=== PATIENT | female | born 1945 | race Caucasian/White ===

== ENCOUNTER → 2017-07-08 | Outpatient (CLI) | payer MEDICARE, BC ==
[2016-06-10 10:13] VITALS: BMI 31.2
[~2017-07-08] MED LIST: ACE325 PO; ACET-1966 PO; ACET-2043 PO; AMLO-96 PO; AMOX1TAB9 PO; CEFU250 PO; CHOL500045 PO; CIPR-245 PO; FAMO20TA28 PO; GLUC100026 PO; HYDR1CAP15 PO; IBU600 PO; IBUP-2708 PO; IBUP600T22 PO; LEVO150T72 PO; LOSA100T67 PO; MOM PO; OXYC5TAB38 PO; PHEN-530 PO; POLY17PO21 PO; SIM40 PO; SIMV-54 PO; TRA50 PO; TRI50 FT; VITA-200 PO; thyroid
== END ==
LOC: LAB 10:58
PROVIDERS: ATTEND Urology
DX: R39.0 Extravasation of urine (principal); B96.20 Unspecified Escherichia coli [E. coli] as the cause of diseases classified elsewhere
CPT/HCPCS: 81001; 87077; 87088; 87186

== ENCOUNTER → 2017-07-12 | Outpatient (CLI) | payer MEDICARE, BC ==
[2016-06-10 10:13] VITALS: BMI 31.2
--- NOTE | 2017-07-12 09:03 | RADIOLOGY IMAGING REPORT ---
FACILITY: [facility] PATIENT NAME: Rowan Rodríguez : 1945 MR: [id number] V: [id number] EXAM DATE: ORDERING PHYSICIAN: SARAH LAMBERT TECHNOLOGIST: Location: [facility] Patient: Rowan Rodríguez : 1945 Visit/Account:[id number] Date of Sevice: 07/12/2017 KIDNEYS EXAMINATION: Renal ultrasound. History: Recurrent UTI COMPARISON STUDIES: CT abdomen and pelvis August 11, 2016 FINDINGS: Kidneys: Right kidney- 10.7 x 4.6 x 5.7 cm Left kidney- 10.3 x 5.2 x 5.2 cm Uniform and symmetric blood flow in each kidney by Doppler ultrasound. Hydronephrosis: Mild left hydronephrosis versus parapelvic cysts Bladder: Prevoid volume 227 mL. Post void residual zero. Bilateral ureteral jets are present. Abdominal aorta and IVC: Aorta and IVC are patent by Doppler ultrasound. IMPRESSION: There is mild left hydronephrosis versus parapelvic cysts Post void bladder residual zero Report Dictated By: Krissy Anton MD at 07/12/2017 8:18 AM Report E-Signed By: Krissy Anton MD at 07/12/2017 8:59 AM WSN:[email or web address]
== END ==
LOC: US 02:14
PROVIDERS: ATTEND Urology
DX: N13.30 Unspecified hydronephrosis (principal)
CPT/HCPCS: 36415; 76705; 82565

== ENCOUNTER → 2017-11-21 | Outpatient (CLI) | payer MEDICARE, BC ==
[2016-06-10 10:13] VITALS: BMI 31.2
[~2017-11-21] MED LIST changes: +GLUC1TAB35 PO
[2017-11-21 12:26] LABS: PLATELET COUNT, AUTOMATED 375 K/uL (150-450)
== END ==
LOC: LAB 11:47
PROVIDERS: ATTEND Family Medicine
DX: E03.9 Hypothyroidism, unspecified (principal); I10 Essential (primary) hypertension; E78.5 Hyperlipidemia, unspecified
CPT/HCPCS: 36415; 82040; 82247; 82310; 82374; 82435; 82465; 82565; 82947; 83718; 84075; 84132; 84155; 84295; 84443; 84450; 84460; 84478; 84520; 85025

== ENCOUNTER → 2018-01-17 | Outpatient (CLI) | payer MEDICARE, BC ==
[2016-06-10 10:13] VITALS: BMI 31.2
[~2018-01-17] MED LIST changes: +LEV125 PO
== END ==
LOC: LAB 09:29
PROVIDERS: ATTEND Urology
DX: N39.0 Urinary tract infection, site not specified (principal); B96.89 Other specified bacterial agents as the cause of diseases classified elsewhere
CPT/HCPCS: 81001; 87088

== ENCOUNTER → 2018-03-14 | Outpatient (CLI) | payer MEDICARE, BC ==
[2016-06-10 10:13] VITALS: BMI 31.2
[~2018-03-14] MED LIST changes: +AMLO-111 PO; -AMLO-96 PO; +ASPI-1471 PO; +LEVO150T78 PO; -LOSA100T67 PO; +LOSA100T69 PO; +PNEU0.5D3 IM
== END ==
LOC: LAB 16:00
PROVIDERS: ATTEND Family Medicine
DX: E03.9 Hypothyroidism, unspecified (principal)
CPT/HCPCS: 36415; 84443

== ENCOUNTER → 2018-04-25 | Outpatient (CLI) | payer MEDICARE, BC ==
[2016-06-10 10:13] VITALS: BMI 31.2
[~2018-04-25] MED LIST changes: +POLY17PO11 PO; -POLY17PO21 PO
--- NOTE | 2018-04-25 09:05 | RADIOLOGY IMAGING REPORT ---
FACILITY: [facility] PATIENT NAME: Rowan Rodríguez : 1945 MR: [id number] V: [id number] EXAM DATE: ORDERING PHYSICIAN: AV KNOX TECHNOLOGIST: Location: [facility] Patient: Rowan Rodríguez : 1945 Visit/Account:[id number] Date of Sevice: 04/25/2018 BONE MINERAL DENSITY DEXA Scan Clinical history: Osteoporosis screening Comparison: None. LUMBAR SPINE: The bone mineral density (BMD) measured from L1-L4 correlates with a Z-score of 0.1 and a T-score of -1.2 which is osteopenia as defined by the World Health Organization. The corresponding risk of frac ture in the lumbar spine is increased between 2-3 times compared with a young adult reference populat ion. HIP: Bone mineral density (BMD) measured in the left total hip region correlates with a Z-score of 0.8 and a T-score of -0.5 which is normal as defined by the World Health Organization. The corresponding ri sk of fracture in the hip is not increased compared with a young adult reference population. Bone mineral density (BMD) measured in the left Femoral Neck region measures 0.870 g/cm?. . T score of -1.2. Osteopenia. Fracture risk increased between 2-3 times Impression: 1. Lumbar spine: Osteopenia. 2. Left Total Hip: Osteopenia. 3. Left Femoral Neck: Bone Mineral Density is 0.870 g/cm?. Osteopenia The next DEXA scan of this patient should include the following sites: L1-L4 and left hip. FRAX? WHO Fracture Risk Assessment Tool link: <http://www.shef.ac.uk/FRAX/tool.jsp?[email or web address]> PLEASE NOTE: 1) The World Health Organization defines low BMD as follows: T-score Normal > -1 Osteopenia < -1 and > -2.5 Osteoporosis < -2.5 without fractures Established osteoporosis < -2.5 with fractures 2) In general, you may wish to consider: Diagnosis Treatment Follow-up DEXA Normal BMD Prevention 2-3 years Osteopenia Prevention/therapy 1-2 years Osteoporosis Therapy Yearly 3) Fracture risk estimated from the T-score is more accurate for vertebral fractures (often spontane ous) than for hip fractures. Report Dictated By: Jim Yusuf MD at 04/25/2018 8:32 AM Report E-Signed By: Jim Yusuf MD at 04/25/2018 9:01 AM ISRRAEL:RENAY
--- NOTE | 2018-04-25 12:21 | RADIOLOGY IMAGING REPORT ---
FACILITY: [facility] [place] PATIENT NAME: KIAH LITTLE : [id number] MR: [id number] V: [id number] EXAM DATE: [id number] ORDERING PHYSICIAN: AV KNOX TECHNOLOGIST: Jordyn Leyva PROCEDURE:BILATERAL DIGITAL SCREENING MAMMOGRAM WITH CAD ASSISTED INTERPRETATION & 3D TOMOSYNTHESIS COMPARISON:Prior mammograms 10/03/2013 & 07/08/2015. INDICATIONS:SCREENING FINDINGS: The breast tissue demonstrates scattered fibroglandular densities. There are stable nodular asymmetries in both breasts. There is no dominant mass, suspicious cluster of microcalcifications or persistent areas of architectural distortion. DIAGNOSTIC CATEGORY 1--NEGATIVE. RECOMMENDATIONS: ROUTINE MAMMOGRAM AND CLINICAL EVALUATION IN 1 YR. IMPRESSION: BIRADS 1: Negative. Dictated by: Elijah Stauffer M.D. on 04/25/2018 at 9:38 Transcribed by: GABBIE on 04/25/2018 at 9:58 Approved by: Elijah Stauffer M.D. on 04/25/2018 at 12:20 [facility]
== END ==
LOC: MAMO 01:10
PROVIDERS: ATTEND Family Medicine
DX: Z13.820 Encounter for screening for osteoporosis (principal); Z12.31 Encounter for screening mammogram for malignant neoplasm of breast; M85.88 Other specified disorders of bone density and structure, other site
CPT/HCPCS: 77063; 77067; 77080

== ENCOUNTER → 2018-06-21 | Outpatient (CLI) | payer MEDICARE, BC ==
[2016-06-10 10:13] VITALS: BMI 31.2
[~2018-06-21] MED LIST changes: +FLUT16SP19 NS; -LOSA100T69 PO; +LOSA100T75 PO; +ROBC PO
--- NOTE | 2018-06-21 12:12 | RADIOLOGY IMAGING REPORT ---
FACILITY: [facility] [place] [place] PATIENT NAME: Rowan Rodríguez : 1945 MR: [id number] V: [id number] EXAM DATE: ORDERING PHYSICIAN: SARAH LAMBERT TECHNOLOGIST: [place] [facility] [place] Rowan Rodríguez : 1945 Visit/Account:[id number] Date of Sevice: 06/21/2018 KIDNEYS EXAMINATION: Renal ultrasound. History: UTIs, incomplete bladder emptying COMPARISON STUDIES: July 12, 2017 FINDINGS: Kidneys: Right kidney- 9.8 x 4.6 x 4.4 cm Left kidney- 9.8 x 5.9 x 4.5 cm Uniform and symmetric blood flow in each kidney by Doppler ultrasound. Hydronephrosis: There is mild right hydronephrosis and mild to moderate left hydronephrosis. This fi nding remained following patient voiding Resistive index on the right 0.59 on the left 0.76 Bladder: Prevoid volume 208 mL. Post void residual 1.3 mL. Bilateral ureteral jets are present Abdominal aorta and IVC: Aorta and IVC are patent by Doppler ultrasound. IMPRESSION: Mild right and mild to moderate left hydronephrosis that persists following bladder emptying Report Dictated By: Krissy Anton MD at 06/21/2018 12:05 PM Report E-Signed By: Krissy Anton MD at 06/21/2018 12:08 PM WSN:[email or web address]
== END ==
LOC: US 01:21
PROVIDERS: ATTEND Urology
DX: N31.2 Flaccid neuropathic bladder, not elsewhere classified (principal); N39.0 Urinary tract infection, site not specified; R33.8 Other retention of urine; N13.2 Hydronephrosis with renal and ureteral calculous obstruction
CPT/HCPCS: 36415; 76705; 82565

== ENCOUNTER 2018-11-07 12:04 | Emergency (ER) | payer MEDICARE, BC ==
[2016-06-10 10:13] VITALS: Wt 77.6 kg
[~2018-11-07 12:04] MED LIST changes: -AMLO-111 PO; +AMLO-125 PO; +CALC-28 PO
[2018-11-07] MEDS ORDERED: CEPH500T7 PO (12:16)
[2018-11-07] MEDS ORDERED: GUAI-242 PO (12:16)
[2018-11-07] MEDS ORDERED: ONDA-2 PO (12:16)
--- NOTE | 2018-11-07 12:21 | ER Report ---
History and Physical Time Seen By MD: 12:21 Hx. of Stated Complaint: PT BEING TREATED FOR UTI SINCE LAST TUESDAY, BEING TREATED WITH MACROBID AND KEFLEX, PT REPORTS NOT GETTING BETTER, REPORTS DR. RIOS TOLD HER TO COME TO ED. PT REPORTS LOW ABD PAIN, COUGH, FEVERS, HEADACHES. HPI/ROS CHIEF COMPLAINT: Cough, fever, suprapubic abdominal pain HISTORY OF PRESENT ILLNESS: This is a 73-year-old female. She has been treated recently for urinary tract infection by her urologist, Dr. Urban, who started her on Macrobid and Keflex. She is still having suprapubic abdominal pain. She does self catheter treatments because she has problems with sensation and is not aware and able to urinate on her own. She also is having cough, fevers and headaches now as well. She talked to her urologist who said to come to the ER today. On arrival was found to have hypoxia, normally does not have any shortness of breath or need oxygen. No history of respiratory problems chronically. Denies any changes with her bowels recently. Cough started becoming productive with the initial sputum today. No nausea or vomiting. Central chest h urts with coughing. Allergies: Coded Allergies: Sulfa (Sulfonamide Antibiotics) (Verified Allergy, Severe, ANAPHYLAXIS, 11/07/18) latex (Verified Allergy, Intermediate, 11/07/18) Home Meds Active Scripts Guaifenesin/Codeine (GUAIFENESIN-CODEINE SYRUP) 5 Ml Syrp, 5 ML PO Q6H PRN for COUGH, #120 ML 0 Refills Prov:SANTOS SALEH MD 11/07/18 Benzonatate 100 Mg Cap (TESSALON PERLE 100 MG CAP) 100 Mg Capsule, 100 MG PO TID PRN for COUGH, #18 CAP 0 Refills Prov:SANTOS SALEH MD 11/07/18 Amoxicillin/Pot Clav 875-125 Mg Tab (AUGMENTIN 875-125 TABLET) 1 Each Tablet, 1 TAB PO Q12H for 10 Days, #20 TAB 0 Refills Prov:SANTOS SALEH MD 11/07/18 Azithromycin (ZITHROMAX) 250 Mg Tablet, 1 TAB PO QDAY for 4 Days, #4 TAB 0 Refills Prov:SANTOS SALEH MD 11/07/18 Reported Medications Guaifenesin/Codeine Phosphate (CHERATUSSIN AC SYRUP) 118 Ml Liquid, 5-10 ML PO QID PRN for COUGH 11/07/18 Cephalexin 500 Mg Tab (KEFLEX 500 MG TAB) 500 Mg Tablet, 500 MG PO Q6H, #28 TAB 11/07/18 Ondansetron Hcl (ONDANSETRON HCL) 4 Mg Tablet, 4 MG PO Q6H PRN for NAUSEA, TAB 11/07/18 Calcium Phosphate Trib/Vit D3 (Citracal + D3 Gummies) 1 Each Tab.chew, 1 TAB.CHEW PO BID 09/21/18 Aspirin (ASPIR 81) 81 Mg Tablet.dr, 1 TAB PO QDAY 03/14/18 Amlodipine Besylate (AMLODIPINE BESYLATE) 5 Mg Tablet, 1 TAB PO QDAY, TAB 03/14/18 Levothyroxine Sodium (LEVOTHYROXINE SODIUM) 150 Mcg Tablet, 1 TAB PO QDAY 03/14/18 Glucosamine/Msm/Chondroitin A (GLUCOSAMINE CHONDROIT MSM TAB) 1 Each Tablet, 2 TAB PO DAILY 11/21/17 Simvastatin (SIMVASTATIN) 40 Mg Tablet, 1 TAB PO DAILY 12/21/16 Losartan Potassium (LOSARTAN POTASSIUM) 100 Mg Tablet, 1 TAB PO QDAY 12/21/16 Reviewed Nurses Notes: Yes Hx Smoking: No Smoking Status: Never Smoker Hx Substance Use Disorder: No Hx Alcohol Use: No Constitutional Vital Sign - Last 24 Hours 11/07/18 11/07/18 11/07/18 11/07/18 12:09 12:15 12:25 12:30 Temp 98.3 Pulse 74 75 69 Resp 12 13 9 B/P (MAP) 153/65 149/74 (99) 136/67 (90) Pulse Ox 86 87 92 O2 Delivery Room Air O2 Flow Rate 1.0 11/07/18 11/07/18 11/07/18 11/07/18 12:45 13:00 13:15 13:30 Pulse 77 78 67 63 Resp 12 38 12 10 B/P (MAP) 147/56 (86) 118/112 (114) 107/50 (69) 121/58 (79) Pulse Ox 92 90 91 91 11/07/18 11/07/18 11/07/18 11/07/18 13:45 14:00 14:30 14:45 Pulse 63 63 65 61 Resp 11 12 17 15 B/P (MAP) 120/47 (71) 130/56 (80) 139/66 (90) 133/62 (85) Pulse Ox 91 91 86 90 11/07/18 11/07/18 11/07/18 11/07/18 15:00 15:15 15:30 15:45 Pulse 58 59 58 58 Resp 22 19 25 20 B/P (MAP) 126/65 (85) 123/64 (83) Pulse Ox 85 89 89 88 11/07/18 11/07/18 11/07/18 11/07/18 16:00 16:15 16:16 16:17 Pulse 68 76 77 Resp 9 B/P (MAP) 137/63 (87) 140/55 (83) Pulse Ox 90 83 81 O2 Delivery Room Air Physical Exam General Appearance: The patient is alert. No acute distress, but is ill- appearing and uncomfortable Eyes: Pupils are equal, round. Reactive to light. No pallor, injection or icterus. Extraocular movements are intact. ENT: Mucous membranes are moist. Normal oral mucosa. Posterior oropharynx is normal. Neck: Supple and non tender. Respiratory: Lungs are diminished with fine rales in both bases a little worse on the left side. No rhonchi or wheezing noted. No retractions or accessory muscle use. She does have significant coughing bouts during our interview and exam. Cardiovascular: Regular rate and rhythm. No murmurs, gallops or rubs. Normal capillary refill. No edema. Gastrointestinal: Abdomen is soft with suprapubic tenderness. Nondistended. Normal active bowel sounds. No costovertebral angle tenderness with percussion. Neurological: Alert and oriented x3. No focal neurologic deficits Skin: Warm and dry. Musculoskeletal: Extremities are nontender. No tenderness palpating her back and spine. DIFFERENTIAL DIAGNOSIS: After history and physical exam, differential diagnosis was considered for a patient with cough and hypoxia with fevers as well as suprapubic tenderness and urinary tract infections with self catheter. Need to look at the abdomen for various causes of this pain as well as looking for infectious etiologies or blood clots looking at the hypoxia and cough. Medical Decision Making Data Points Result Diagram: 11/07/18 1217 11/07/18 1217 Laboratory Hematology Test 11/07/18 12:17 11/07/18 12:48 11/07/18 13:55 Red Blood Count 5.18 M/uL (4.17-5.56) Mean Corpuscular Volume 91.9 fL (80.0-96.0) Mean Corpuscular Hemoglobin 30.4 pg (26.0-33.0) Mean Corpuscular Hemoglobin Concent 33.1 g/dL (32.0-36.0) Red Cell Distribution Width 13.5 % (11.5-14.5) Mean Platelet Volume 8.4 fL (7.2-11.1) Neutrophils (%) (Auto) 64.9 % (39.4-72.5) Lymphocytes (%) (Auto) 20.2 % (17.6-49.6) Monocytes (%) (Auto) 12.5 % (4.1-12.4) Eosinophils (%) (Auto) 1.2 % (0.4-6.7) Basophils (%) (Auto) 1.2 % (0.3-1.4) Nucleated RBC Relative Count (auto) 0.0 /100WBC Neutrophils # (Auto) 3.2 K/uL (2.0-7.4) Lymphocytes # (Auto) 1.0 K/uL (1.3-3.6) Monocytes # (Auto) 0.6 K/uL (0.3-1.0) Eosinophils # (Auto) 0.1 K/uL (0.0-0.5) Basophils # (Auto) 0.1 K/uL (0.0-0.1) Nucleated RBC Absolute Count (auto) 0.00 K/uL Sodium Level 140 mmol/L (137-145) Potassium Level 4.3 mmol/L (3.5-5.0) Chloride Level 103 mmol/L (98-107) Carbon Dioxide Level 31 mmol/L (22-31) Blood Urea Nitrogen 12 mg/dl (7-18) Creatinine 1.10 mg/dl (0.52-1.04) Glomerular Filtration Rate Calc 48.8 Random Glucose 109 mg/dl (75-110) Lactate 1.1 mmol/L (0.7-2.1) Calcium Level 9.3 mg/dl (8.4-10.2) Total Bilirubin 0.7 mg/dl (0.2-1.3) Aspartate Amino Transf (AST/SGOT) 21 U/L (0-35) Alanine Aminotransferase (ALT/SGPT) 33 U/L (0-56) Alkaline Phosphatase 69 U/L (0-126) Total Protein 7.1 g/dl (6.3-8.2) Albumin 4.0 g/dl (3.5-5.0) Urine Color Yellow Urine Clarity Clear Urine pH 5.0 pH (4.8-9.5) Urine Specific [place] 1.017 Urine Protein Negative mg/dL (NEGATIVE) Urine Glucose (UA) Negative mg/dL (NEGATIVE) Urine Ketones Negative mg/dL (NEGATIVE) Urine Blood Small (NEGATIVE) Urine Nitrite Negative (NEGATIVE) Urine Bilirubin Negative (NEGATIVE) Urine Urobilinogen Negative mg/dL (0.2-1.9) Urine Leukocyte Esterase Negative (NEGATIVE) Urine RBC 1 /HPF (0-2/HPF) Urine WBC <1 /HPF (0-5/HPF) Urine Squamous Epithelial Cells Many /LPF (NONE-FEW) Urine Bacteria Negative /HPF (NONE-FEW) Urine Mucus None /HPF (NONE-FEW) Influenza Virus Type A (PCR) Negative (NEGATIVE) Influenza Virus Type B (PCR) Negative (NEGATIVE) Chemistry Test 11/07/18 12:17 11/07/18 12:48 11/07/18 13:55 White Blood Count 4.9 k/uL (4.5-11.0) Red Blood Count 5.18 M/uL (4.17-5.56) Hemoglobin 15.7 g/dL (12.0-16.0) Hematocrit 47.6 % (34.0-47.0) Mean Corpuscular Volume 91.9 fL (80.0-96.0) Mean Corpuscular Hemoglobin 30.4 pg (26.0-33.0) Mean Corpuscular Hemoglobin Concent 33.1 g/dL (32.0-36.0) Red Cell Distribution Width 13.5 % (11.5-14.5) Platelet Count 331 K/uL (150-450) Mean Platelet Volume 8.4 fL (7.2-11.1) Neutrophils (%) (Auto) 64.9 % (39.4-72.5) Lymphocytes (%) (Auto) 20.2 % (17.6-49.6) Monocytes (%) (Auto) 12.5 % (4.1-12.4) Eosinophils (%) (Auto) 1.2 % (0.4-6.7) Basophils (%) (Auto) 1.2 % (0.3-1.4) Nucleated RBC Relative Count (auto) 0.0 /100WBC Neutrophils # (Auto) 3.2 K/uL (2.0-7.4) Lymphocytes # (Auto) 1.0 K/uL (1.3-3.6) Monocytes # (Auto) 0.6 K/uL (0.3-1.0) Eosinophils # (Auto) 0.1 K/uL (0.0-0.5) Basophils # (Auto) 0.1 K/uL (0.0-0.1) Nucleated RBC Absolute Count (auto) 0.00 K/uL Glomerular Filtration Rate Calc 48.8 Lactate 1.1 mmol/L (0.7-2.1) Calcium Level 9.3 mg/dl (8.4-10.2) Total Bilirubin 0.7 mg/dl (0.2-1.3) Aspartate Amino Transf (AST/SGOT) 21 U/L (0-35) Alanine Aminotransferase (ALT/SGPT) 33 U/L (0-56) Alkaline Phosphatase 69 U/L (0-126) Total Protein 7.1 g/dl (6.3-8.2) Albumin 4.0 g/dl (3.5-5.0) Urine Color Yellow Urine Clarity Clear Urine pH 5.0 pH (4.8-9.5) Urine Specific [place] 1.017 Urine Protein Negative mg/dL (NEGATIVE) Urine Glucose (UA) Negative mg/dL (NEGATIVE) Urine Ketones Negative mg/dL (NEGATIVE) Urine Blood Small (NEGATIVE) Urine Nitrite Negative (NEGATIVE) Urine Bilirubin Negative (NEGATIVE) Urine Urobilinogen Negative mg/dL (0.2-1.9) Urine Leukocyte Esterase Negative (NEGATIVE) Urine RBC 1 /HPF (0-2/HPF) Urine WBC <1 /HPF (0-5/HPF) Urine Squamous Epithelial Cells Many /LPF (NONE-FEW) Urine Bacteria Negative /HPF (NONE-FEW) Urine Mucus None /HPF (NONE-FEW) Influenza Virus Type A (PCR) Negative (NEGATIVE) Influenza Virus Type B (PCR) Negative (NEGATIVE) Urinalysis Test 11/07/18 12:48 Urine Color Yellow Urine Clarity Clear Urine pH 5.0 pH (4.8-9.5) Urine Specific [place] 1.017 Urine Protein Negative mg/dL (NEGATIVE) Urine Glucose (UA) Negative mg/dL (NEGATIVE) Urine Ketones Negative mg/dL (NEGATIVE) Urine Blood Small (NEGATIVE) Urine Nitrite Negative (NEGATIVE) Urine Bilirubin Negative (NEGATIVE) Urine Urobilinogen Negative mg/dL (0.2-1.9) Urine Leukocyte Esterase Negative (NEGATIVE) Urine RBC 1 /HPF (0-2/HPF) Urine WBC <1 /HPF (0-5/HPF) Urine Squamous Epithelial Cells Many /LPF (NONE-FEW) Urine Bacteria Negative /HPF (NONE-FEW) Urine Mucus None /HPF (NONE-FEW) EKG/Imaging Imaging CHEST PA LAT HISTORY: Cough. Fever. COMPARISON: None FINDINGS: Cardiomediastinal contours: The heart size is normal. Lungs and pleura: There is no finding of an infiltrate, lymphadenopathy or pleural effusion. Bones/soft tissues: There are no findings of a fracture. Abdomen: There are surgical clips in the left and right upper quadrant. IMPRESSION: 1. No active disease in the chest. 2. Postoperative changes in the abdomen. Report Dictated By: Meng Garcia MD at 11/07/2018 1:[address] CTA CHEST W & W/O CON HISTORY: Cough hypoxia and fever ADDITIONAL HISTORY: None. TECHNIQUE: CTA chest with intravenous contrast. Axial imaging acquired following administration of IV contrast timed for maximum opacification of the pulmonary arterial vasculature. Slab 3-D MIP reconstructed images were also created for further evaluation and interpretation. Reconstruction of the source data set includes multiplanar 2-D in the sagittal and coronal planes and 3-D reconstructed coronal slab MIP series. 3-D images were created by the technologist.Dose Lowering Technique One of the following dose optimization techniques was utilized in the performance of this exam: Automated exposure control; adjustment of the mA and/or kV according to the patient's size; or use of an iterative reconstruction technique. Specific details can be referenced in the facility's radiology CT exam operational policy. CONTRAST: 75 mL Isovue-370 COMPARISON: None. FINDINGS: Lungs/pleura: There is a cluster of nodules in the right middle lobe ranging in size up to 5 mm. A similar finding although too lesser extent is seen along the inferior aspect of the lingula. This may represent an acute infectious/inflammatory process. There is mild peribronchial thickening in the lower lobes. No evidence of pleural effusions. Heart/vessels: Negative. There are no filling defects seen in the pulmonary arteries worrisome for a pulmonary embolus. Mediastinum/lymph nodes: There is a 2.4 x 0.9 cm prevascular space lymph node There is a 1.8 x 1 cm AP window lymph node is a 1.4 x 1 cm pretracheal lymph node is 2.5 x 1.26 cm subcarinal lymph node Visualized upper abdomen: There numerous surgical clips in the upper abdomen adjacent to the stomach. There are postsurgical changes from a cholecystectomy Bones/soft tissues: Negative. Additional findings: None IMPRESSION: No evidence of pulmonary emboli There is a cluster of nodules in the right middle lobe ranging in size up to 5 mm. A similar finding seen in the inferior lingula but to a lesser extent. This may represent an infectious/inflammatory process given the clinical history. Also noted is mild mediastinal adenopathy which could be reactive. Short-term interval follow-up recommended Report Dictated By: Krissy Anton MD at 11/07/2018 2:[address] ABDOMEN PELVIS W/ CON HISTORY: fever, suprapubic abd pain TECHNIQUE: Following administration of IV contrast contiguous axial images acquired through the abdomen/pelvis. Coronal and sagittal reformatting also performed.Dose Lowering Technique One of the following dose optimization techniques was utilized in the performance of this exam: Automated exposure control; adjustment of the mA and/or kV according to the patient's size; or use of an iterative reconstruction technique. Specific details can be referenced in the facility's radiology CT exam operational policy. CONTRAST: 75 mL Isovue-370 COMPARISON: August 11, 2016 FINDINGS: Visualized lung bases: Nodular infiltrate seen in the right middle lobe and inferior lingula as discussed in today's CTA of the chest Hepatobiliary: Postsurgical changes from a cholecystectomy Spleen: Negative. Adrenals: Negative. Pancreas: Negative. Kidneys ureters or bladder: Numerous parapelvic cysts are identified in both kidneys. There is cortical scarring in the upper pole of the left kidney . This mild bladder wall thickening Genitalia: Hysterectomy GI: There numerous surgical clips adjacent to the stomach. There appears to been a Odalys procedure. There is scattered diverticula throughout the colon although no CT evidence of acute diverticulitis . The appendix is visualized and does not appear inflamed. There is mild focal narrowing in the sigmoid colon most likely an area of spasm less likely an annular lesion Vessels/spaces/nodes: Negative. Bones/soft tissues: There is a small umbilical hernia containing fat Additional findings: None pertinent. IMPRESSION: There is scattered diverticula throughout the colon although no CT evidence of acute diverticulitis Cortical scarring upper pole the left kidney Numerous parapelvic cysts in both kidneys Mild bladder wall thickening Post surgical changes from cholecystectomy and hysterectomy Nodular infiltrates in the right middle lobe and inferior lingula as discussed in today's CTA of the chest Report Dictated By: Krissy Anton MD at 11/07/2018 2:46 PM ED Course/Re-evaluation Clinical Indication for ER IV: Hydration, IV Access ED Course Labs obtained, unremarkable. Urinalysis does not show signs of infection. Did draw a lactate and blood cultures and sent catheter urine specimen for culture. Initial x-ray negative, but based on symptoms, advance to a CT scan. Did a CT angiogram of the chest which was negative for PE but does show nodular changes in the right middle and left lingular lobe. Abdominal CT scan shows some bladder wall thickening but no other problems there. Discussed briefly with Dr. Rios, and let him know we would be stopping the Macrobid and Keflex and starting a azithromycin and Augmentin. Attempted to call her primary care provider, Dr. Knox, but she was unavailable. Recommended that she follow up with Dr. Heaton later this week to make sure she is improving. Follow-up CT scan will need to be done as well to ensure clearing. Home oxygen provided. Vital signs remained stable and she is stable to return home at this time. Decision to Disposition Date: November 07, 2018 Decision to Disposition Time: 16:14 Depart Departure Latest Vital Signs Vital Signs Date Time Temp Pulse Resp B/P (MAP) Pulse Ox O2 Delivery O2 Flow Rate FiO2 11/07/18 16:17 77 81 Room Air 11/07/18 16:16 140/55 (83) 11/07/18 16:00 9 11/07/18 12:25 1.0 11/07/18 12:09 98.3 Impression: Primary Impression: Pneumonia Condition: Improved Disposition: HOME OR SELF-CARE Referrals: AV KNOX MD (PCP) New Scripts Guaifenesin/Codeine (GUAIFENESIN-CODEINE SYRUP) 5 Ml Syrp 5 ML PO Q6H PRN for COUGH, #120 ML 0 Refills Prov: SANTOS SALEH MD 11/07/18 Benzonatate 100 Mg Cap (TESSALON PERLE 100 MG CAP) 100 Mg Capsule 100 MG PO TID PRN for COUGH, #18 CAP 0 Refills Prov: SANTOS SALEH MD 11/07/18 Amoxicillin/Pot Clav 875-125 Mg Tab (AUGMENTIN 875-125 TABLET) 1 Each Tablet 1 TAB PO Q12H for 10 Days, #20 TAB 0 Refills Prov: SANTOS SALEH MD 11/07/18 Azithromycin (ZITHROMAX) 250 Mg Tablet 1 TAB PO QDAY for 4 Days, #4 TAB 0 Refills Prov: SANTOS SALEH MD 11/07/18 Departure Forms: Home Oxygen, Nebulizer RX Durable Medical Equipment- Oxygen: Oxygen Concentrator, Portable Oxygen Gas Reason for Use/Diagnosis: pneumonia, hypoxia Start Date of the Order: November 07, 2018 Route of Administration (if applicable): Nasal Cannula Frequency of Use: Continuous Duration Home O2 Required: 4 Duration Units: Weeks Room Air Oxygen Saturation: 81 ER Prescribing Physician's Name: Santos Saleh NPI Numbers for Local ER MDs: Padmini [id number] Patient Instructions: Community Acquired Pneumonia (ED) Additional Instructions: You can stop your Macrobid and Keflex. Start the following two antibiotics: Azithromycin 250mg tablets, 2 tablets today, then one daily for 4 more days. Augmentin 875/125 twice a day for 10 days. Please follow-up with Dr. Rios as planned. Call Dr. Knox tomorrow to arrange follow-up with her. You can use Guaifenesin with Codeine, 1 teaspoon every 4 hours as needed for severe cough. You can use Benzonatate 100mg capsules, one every 8 hours as needed for cough. Home oxygen at 2.5 liters by nasal canula continuously until you see Dr. Knox and she okays you to stop the oxygen. Problem Qualifiers Primary Impression: Pneumonia Pneumonia type: due to unspecified organism Laterality: bilateral Lung location: unspecified part of lung Qualified Codes: J18.9 - Pneumonia, unspecified organism SANTOS SALEH MD November 07, 2018 12:21
[2018-11-07] MEDS ORDERED: NS(*) 0.9% 1000 ML BAG 1,000 ML IV ONE (12:30)
[2018-11-07 12:45] LABS: PLATELET COUNT, AUTOMATED 331 K/uL (150-450)
--- NOTE | 2018-11-07 13:12 | RADIOLOGY IMAGING REPORT ---
FACILITY: [facility] PATIENT NAME: Rowan Rodríguez : 1945 MR: [id number] V: [id number] EXAM DATE: ORDERING PHYSICIAN: JUANITA SALEH TECHNOLOGIST: Location: [facility] - [place] Patient: Rowan Rodríguez : 1945 Visit/Account:[id number] Date of Sevice: 11/07/2018 CHEST PA LAT HISTORY: Cough. Fever. COMPARISON: None FINDINGS: Cardiomediastinal contours: The heart size is normal. Lungs and pleura: There is no finding of an infiltrate, lymphadenopathy or pleural effusion. Bones/soft tissues: There are no findings of a fracture. Abdomen: There are surgical clips in the left and right upper quadrant. IMPRESSION: 1. No active disease in the chest. 2. Postoperative changes in the abdomen. Report Dictated By: Meng Garcia MD at 11/07/2018 1:06 PM Report E-Signed By: Meng Garcia MD at 11/07/2018 1:07 PM WSN:[email or web address]
[2018-11-07] MEDS ORDERED: guaiFENesin/CODEINE 5 ML UDBTL PO ONE (13:40)
[2018-11-07] MEDS ORDERED: IOPAMIDOL 76% 100 ML INFUS BTL 100 ML ONE (14:14)
[2018-11-07] MEDS ORDERED: NS(*) 0.9% 50 ML BAG 50 ML ONE (14:14)
--- NOTE | 2018-11-07 14:48 | RADIOLOGY IMAGING REPORT ---
[place] [facility] [place] Rowan Rodríguez : 1945 MR: [id number] V: [id number] EXAM DATE: ORDERING PHYSICIAN: JUANITA SALEH TECHNOLOGIST: Location: [facility] - [place] Patient: Rowan Rodríguez : 1945 Visit/Account:[id number] Date of Sevice: 11/07/2018 CT CTA CHEST W & W/O CON HISTORY: Cough hypoxia and fever ADDITIONAL HISTORY: None. TECHNIQUE: CTA chest with intravenous contrast. Axial imaging acquired following administration of IV contrast timed for maximum opacification of the pulmonary arterial vasculature. Slab 3-D MIP deb nstructed images were also created for further evaluation and interpretation. Reconstruction of the [facility] data set includes multiplanar 2-D in the sagittal and coronal planes and 3-D reconstructed fercho nal slab MIP series. 3-D images were created by the technologist.Dose Lowering Technique One of the following dose optimization techniques was utilized in the performance of this exam: Autom ated exposure control; adjustment of the mA and/or kV according to the patient's size; or use of an i terative reconstruction technique. Specific details can be referenced in the facility's radiology C T exam operational policy. CONTRAST: 75 mL Isovue-370 COMPARISON: None. FINDINGS: Lungs/pleura: There is a cluster of nodules in the right middle lobe ranging in size up to 5 mm. A similar finding although too lesser extent is seen along the inferior aspect of the lingula. This ma y represent an acute infectious/inflammatory process. There is mild peribronchial thickening in the lower lobes. No evidence of pleural effusions. Heart/vessels: Negative. There are no filling defects seen in the pulmonary arteries worrisome for a pulmonary embolus. Mediastinum/lymph nodes: There is a 2.4 x 0.9 cm prevascular space lymph node There is a 1.8 x 1 cm AP window lymph node is a 1.4 x 1 cm pretracheal lymph node is 2.5 x 1.26 cm olivares bcarinal lymph node Visualized upper abdomen: There numerous surgical clips in the upper abdomen adjacent to the stomach . There are postsurgical changes from a cholecystectomy Bones/soft tissues: Negative. Additional findings: None IMPRESSION: No evidence of pulmonary emboli There is a cluster of nodules in the right middle lobe ranging in size up to 5 mm. A similar finding seen in the inferior lingula but to a lesser extent. This may represent an infectious/inflammatory process given the clinical history. Also noted is mild mediastinal adenopathy which could be reactiv e. Short-term interval follow-up recommended Report Dictated By: Krissy Anton MD at 11/07/2018 2:36 PM Report E-Signed By: Krissy Anton MD at 11/07/2018 2:44 PM RODNEYN:[email or web address]
--- NOTE | 2018-11-07 15:40 | RADIOLOGY IMAGING REPORT ---
FACILITY: [facility] PATIENT NAME: Rowan Rodríguez : 1945 MR: [id number] V: [id number] EXAM DATE: ORDERING PHYSICIAN: JUANITA SALEH TECHNOLOGIST: [place] [facility] [place] Patient: Rowan Rodríguez : 1945 Visit/Account:[id number] Date of Sevice: 11/07/2018 CT ABDOMEN PELVIS W/ CON HISTORY: fever, suprapubic abd pain TECHNIQUE: Following administration of IV contrast contiguous axial images acquired through the abdom en/pelvis. Coronal and sagittal reformatting also performed.Dose Lowering Technique One of the following dose optimization techniques was utilized in the performance of this exam: Autom ated exposure control; adjustment of the mA and/or kV according to the patient's size; or use of an i terative reconstruction technique. Specific details can be referenced in the facility's radiology C T exam operational policy. CONTRAST: 75 mL Isovue-370 COMPARISON: August 11, 2016 FINDINGS: Visualized lung bases: Nodular infiltrate seen in the right middle lobe and inferior lingula as disc ussed in today's CTA of the chest Hepatobiliary: Postsurgical changes from a cholecystectomy Spleen: Negative. Adrenals: Negative. Pancreas: Negative. Kidneys ureters or bladder: Numerous parapelvic cysts are identified in both kidneys. There is corti khadijah scarring in the upper pole of the left kidney . This mild bladder wall thickening Genitalia: Hysterectomy GI: There numerous surgical clips adjacent to the stomach. There appears to been a Odalys procedure . There is scattered diverticula throughout the colon although no CT evidence of acute diverticuliti s . The appendix is visualized and does not appear inflamed. There is mild focal narrowing in the s igmoid colon most likely an area of spasm less likely an annular lesion Vessels/spaces/nodes: Negative. Bones/soft tissues: There is a small umbilical hernia containing fat Additional findings: None pertinent. IMPRESSION: There is scattered diverticula throughout the colon although no CT evidence of acute diverticulitis Cortical scarring upper pole the left kidney Numerous parapelvic cysts in both kidneys Mild bladder wall thickening Post surgical changes from cholecystectomy and hysterectomy Nodular infiltrates in the right middle lobe and inferior lingula as discussed in today's CTA of the chest Report Dictated By: Krissy Anton MD at 11/07/2018 2:46 PM Report E-Signed By: Krissy Anton MD at 11/07/2018 3:36 PM RODNEYN:ALEX
[2018-11-07 16:16] VITALS: BP 140/55
[2018-11-07] MEDS ORDERED: AZIT-1 PO (16:18)
[2018-11-07] MEDS ORDERED: AMOX-559 PO (16:18)
[2018-11-07] MEDS ORDERED: BENZ100C4 PO (16:18)
[2018-11-07] MEDS ORDERED: ROBC PO (16:18)
[2018-11-07] MEDS ORDERED: AMOX/CLAV 875 MG TAB PO ONE (16:25)
[2018-11-07] MEDS ORDERED: AZITHROMYCIN 250 MG TAB PO ONE (16:25)
[2018-11-09] MEDS ORDERED: IPRA3AMP10 IH ×2 (11:13→11:44)
== END 2018-11-07 16:40 | disposition home or self-care (01) ==
LOC: ER 12:15
DX: J18.1 Lobar pneumonia, unspecified organism (principal)
CPT/HCPCS: 71046; 71275; 74177; 81001; 83605; 85025; 87040; 87088; 87502; 96360; 96361; 99284; A4353; A9270; J7030; J7050; Q0144; Q9967; 82040; 82247; 82310; 82374; 82435; 82565; 82947; 84075; 84132; 84155; 84295; 84450; 84460; 84520

== ENCOUNTER → 2018-12-08 | Outpatient (CLI) | payer MEDICARE, BC ==
[2016-06-10 10:13] VITALS: BMI 31.2
[~2018-12-08] MED LIST changes: +AMOX-559 PO; +AZIT-1 PO; +BENZ100C4 PO; +CEPH500T7 PO; +GUAI-242 PO; +IOPAMIDOL 76% 100 ML INFUS BTL 100 ML ONE; +IPRA3AMP10 IH; +ONDA-2 PO
--- NOTE | 2018-12-08 09:23 | RADIOLOGY IMAGING REPORT ---
FACILITY: [facility] - [place] PATIENT NAME: Rowan Rodríguez : 1945 MR: [id number] V: [id number] EXAM DATE: ORDERING PHYSICIAN: AV KNOX TECHNOLOGIST: Location: [facility] [place] Patient: Rowan Rodríguez : 1945 Visit/Account:[id number] Date of Sevice: 12/08/2018 CT CHEST W & W/O CON History: pneumonia ADDITIONAL CLINICAL HISTORY: None TECHNIQUE: Contiguous axial images were performed through the chest to the level of the adrenal gla nds with and without IV contrast. Coronal and sagittal reformatting was also performed.Dose Lowerin g Technique One of the following dose optimization techniques was utilized in the performance of this exam: Autom ated exposure control; adjustment of the mA and/or kV according to the patient's size; or use of an i terative reconstruction technique. Specific details can be referenced in the facility's radiology C T exam operational policy. Contrast: 75 mL Isovue-370 COMPARISON STUDIES: CTA chest November 07, 2018. Lungs / Pleura: The previously noted cluster of nodules in the right middle lobe have mostly resolv ed. There is one tiny residual 3 mm nodule in the inferior right middle lobe best appreciated on shweta ge 148 of series 4. The similar changes in the inferior lingula have partially improved although the re is a small amount of septal thickening remaining. There is no evidence of pleural effusions. Mediastinum/nodes: . All of the previously noted mediastinal lymph nodes have decreased in size Heart and vessels: negative. Musculoskeletal / Body wall: negative. Upper abdomen: Numerous surgical clips identified in the upper abdomen. There appears to been rela lefty to a Odalys procedure. There are postsurgical changes from a cholecystectomy IMPRESSION: There has been interval clearing of the cluster of nodules in the right middle lobe with only a tiny residual 3 mm nodule remaining which is of doubtful significance Similar changes in the inferior lingula have partially improved. Small amount of septal thickening r emaining may represent scarring All the previously noted mediastinal lymph nodes have decreased in size and were likely reactive Report Dictated By: Krissy Anton MD at 12/08/2018 8:53 AM Report E-Signed By: Krissy Anton MD at 12/08/2018 9:16 AM WSN:[email or web address]
== END ==
LOC: CT 01:01
PROVIDERS: ATTEND Family Medicine
DX: J18.9 Pneumonia, unspecified organism (principal)
CPT/HCPCS: 71270; Q9967

== ENCOUNTER → 2019-01-23 | Outpatient (CLI) | payer MEDICARE, BC ==
[2016-06-10 10:13] VITALS: BMI 31.2
[~2019-01-23] MED LIST changes: -IOPAMIDOL 76% 100 ML INFUS BTL 100 ML ONE
--- NOTE | 2019-01-23 11:03 | RADIOLOGY IMAGING REPORT ---
FACILITY: [facility] - [place] PATIENT NAME: Rowan Rodríguez : 1945 MR: [id number] V: [id number] EXAM DATE: ORDERING PHYSICIAN: SARAH LAMBERT TECHNOLOGIST: Location: [facility] - [place] Patient: Rowan Rodríguez : 1945 Visit/Account:[id number] Date of Sevice: 01/23/2019 KIDNEYS EXAMINATION: Renal ultrasound. History: Incomplete bladder emptying COMPARISON STUDIES: June 21, 2018 FINDINGS: Kidneys: Right kidney- 9 x 4.9 x 5.6 cm Left kidney- 10.2 x 4.9 x 5.5 cm Uniform and symmetric blood flow in each kidney by Doppler ultrasound. Hydronephrosis: Mild on the left versus parapelvic cysts A 1.5 cm cyst in the lower pole the right kidney. There is a 2.2 cm cyst lower pole the left kidney Bladder: Prevoid volume 134 mL. Post void residual 30 mL. Bilateral ureteral jets are present. Abdominal aorta and IVC: Aorta and IVC are patent by Doppler ultrasound. IMPRESSION: Bilateral renal cysts as described above Mild left hydronephrosis versus parapelvic cysts. The latter is favored from the prior CT scan Report Dictated By: Krissy Anton MD at 01/23/2019 10:45 AM Report E-Signed By: Krissy Anton MD at 01/23/2019 10:55 AM WSN:[email or web address]
== END ==
LOC: US 01:28
PROVIDERS: ATTEND Urology
DX: N28.1 Cyst of kidney, acquired (principal)
CPT/HCPCS: 36415; 76705; 82565